=== PATIENT | male | born 1980 | race Two or more races ===

== ENCOUNTER 2025-01-30 17:06 | Emergency (ER) | payer MEDICAID, SELFPAY ==
[2025-01-30] VITALS (8 sets, daily range): BP systolic 119–154; BP diastolic 76–101; PULSE 108–238; RESP 16–18; TEMP 36.8; O2SAT 95–97; BMI 30.3
--- NOTE | 2025-01-30 17:13 | EKG_ITS ---
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
--- NOTE | 2025-01-30 17:13 | EKG_ITS ---
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
[2025-01-30] MEDS: ADENOSINE INJ 3 MG/ML VIAL 6 MG IVP (17:18)
[2025-01-30] MEDS: ADENOSINE INJ 3 MG/ML VIAL 12 MG IVP (17:20)
--- NOTE | 2025-01-30 17:24 | PD.EDARRY ---
ED Arrhythmia Palp. RME/HPI General Chief Complaint: Arrhythmia/Palpitations Stated Complaint: FAST HEART RATE WITH SOB Time Seen by Provider: 01/30/25 17:39 Arrival date/time: 01/30/25 17:06 RME / HPI RME / HPI narrative: DR. HOANG MAIN ED EVALUATION: 44-year-old male with a known history of SVT presents to the Emergency Department after experiencing a sudden onset of palpitations, dizziness, and fatigue approximately 10 minutes prior to arrival. EKG showed revealed SVT with a rate of 236 bpm. He admits to consuming three Monster energy drinks earlier today. He denies chest pain or shortness of breath. The patient has a history of SVT and reports he quit methamphetamine use 19 days ago, although he continues to smoke and drink alcohol. Related Data Home Medications ?Medication ?Instructions ?Recorded ?Confirmed metoprolol tartrate 50 mg tablet 50 mg PO BID 09/02/17 10/23/19 Previous Rx's ?Medication ?Instructions ?Recorded acetaminophen 650 mg 650 mg PO Q8H PRN fever or pain 01/17/22 tablet,extended release #30 tabs ibuprofen 600 mg tablet 600 mg PO Q8H PRN fever or pain 01/17/22 #30 tabs metoprolol tartrate 50 mg tablet 50 mg PO BID #60 tabs 11/13/22 metoprolol tartrate 50 mg tablet 50 mg PO Q12H #28 tabs 05/05/23 Allergies Allergy/AdvReac Type Severity Reaction Status Date / Time No Known Allergies Allergy Verified 01/30/25 17:07 Review of Systems Review of Systems Systems Reviewed: All systems reviewed, normal except as documented Past Medical History Past Medical History CARDIAC: Positive Cardiac Disorders (SVT), Cardiac Arrhythmia and Hypertension Social History SMOKING STATUS: Current every day smoker SUBSTANCE USE: former substance user and methamphetamine ALCOHOL: Current ED Exam Narrative Physical exam: Constitutional: Awake, alert, nontoxic, diaphoretic, looks uncomfortable HEENT: NC, AT, EOMI Neck: Supple CV: tachycardic in SVT Lungs: CTAB, no w/r/r, no respiratory distress. Abd: Soft, NT, NT, no HSM noted to palpation Extremities: No deformities, no edema noted Neuro: AAOx3, CN 2-12 GIBL, no acute neuro deficit noted. Skin: Warm, dry, intact Course Course Course Narrative: 1800h: Patient in SVT with a rate of 240 on arrival. Was given adenosine x 2 as well as IV fluids with improvement of heart rate down to the low 100s. Has a history of this in the past. Did drink several caffeinated beverages prior to this. Improved at present. Awaiting labs. Signed out to Dr. Ceron pending same. Likely able to discharge home after. Quality Measures none Orders Category Date Time Status EKG (ED ONLY) *Do not use* NOW Care 01/30/25 17:13 Completed EKG (ED ONLY) *Do not use* NOW Care 01/30/25 17:13 Completed Insert IV NOW Care 01/30/25 17:13 Active EKG (ED Only) Stat Exams 01/30/25 17:13 Draft EKG (ED Only) Stat Exams 01/30/25 17:13 Draft Adenosine 6mg Inj [Adenocard Inj] Med 01/30/25 17:13 Discontinued 12 mg IVP X1 ONE Adenosine 6mg Inj [Adenocard Inj] Med 01/30/25 17:19 Discontinued 12 mg IVP X1 ONE Adenosine 6mg Inj [Adenocard Inj] Med 01/30/25 17:13 Discontinued 6 mg IVP X1 ONE Ringers Lactated 1000 ml [Lactated Ringers] 1,000 ml Med 01/30/25 17:14 Active IV 999 mls/hr Sodium Chloride 0.9% 1000 ml [Ns] 1,000 ml Med 01/30/25 17:22 Ordered IV 999 mls/hr Vital Signs Vital signs: Vital Signs Pulse Rate 238 H 01/30/25 17:12 Respiratory Rate 18 01/30/25 17:12 Blood Pressure 119/76 01/30/25 17:12 Pulse Oximetry (%) 97 01/30/25 17:12 Oxygen Delivery Method Room Air 01/30/25 17:12 PROCEDURES: Procedure Comment Procedure Note: Cardioversion with Adenosine Indication: Stable supraventricular tachycardia (SVT) with HR 236 bpm. Procedure: Patient was placed on continuous cardiac monitoring. Intravenous (IV) access was established. Adenosine was administered as per ACLS protocol. First dose: Adenosine 6 mg rapid IV push followed by 10 mL saline flush ? no effect. Second dose: Adenosine 12 mg rapid IV push followed by 10 mL saline flush ? delayed response noted, but the patient ultimately converted to normal sinus rhythm. Outcome: Successful chemical cardioversion. Patient tolerated the procedure well without complications. Rhythm returned to sinus following second dose of adenosine. Disposition: Continued cardiac monitoring and further evaluation for underlying triggers. Arrhythmia/Palpitations MDM Narrative MDM Narrative:: I, Milly Ramirez, am scribing for and in the presence of Dr. Hoang. Patient data External records reviewed:: [facility] previous records Clinical information provided by:: patient Social determinants that could affect healthcare access:: substance use Patient has the following chronic illnesses:: The patient has a history of SVT and reports he quit methamphetamine use 19 days ago, although he continues to smoke and drink alcohol. How is presenting disease/condition affected by chronic disease/condition?: exacerbated by Evaluation data The following diagnostics were reviewed and interpreted by me:: lab results, radiology exam(s) and EKG tracing(s) Lab and/or radiology exams considered but not ordered:: none Interpretation Summary: #1 My interpretation: EKG performed at 1712 hours, SVT, rate 236, no STEMI #2 Post adenosine my interpretation: EKG performed at 1717 hours, normal sinus rhythm, rate 98, no STEMI #3 My interpretation: EKG performed at 1719 hours, sinus tachycardia, rate 106, no STEMI Medications / Prescriptions Medications or Prescriptions considered but not ordered:: none Medication administrations:: Medication Administration History Lactated Ringer's (Lactated Ringers) 1,000 mls @ 999 mls/hr IV .Q1H1M ONE Stop: 01/30/25 18:14 Sodium Chloride (Ns) 1,000 mls @ 999 mls/hr IV .Q1H1M ONE Stop: 01/30/25 18:22 Discontinued Medications Adenosine (Adenosine Inj 3 Mg/Ml Vial) 6 mg IVP X1 ONE Stop: 01/30/25 17:14 Last Admin: 01/30/25 17:18 Dose: 6 mg Documented By: DB Adenosine (Adenosine Inj 3 Mg/Ml Vial) 12 mg IVP X1 ONE Stop: 01/30/25 17:14 Last Admin: 01/30/25 17:20 Dose: 12 mg Documented By: DB Adenosine (Adenosine Inj 3 Mg/Ml Vial) 12 mg IVP X1 ONE Stop: 01/30/25 17:20 Consultations Consultation(s) initiated? (list below): No Diagnosis Differential diagnosis arrhythmia/palpitations: palpitations, sinus tachycardia, artial fibrillation, artial flutter, ventricular premature beats, supraventricular tachycardia and other (SVT exacerbated by stimulant intake, atrial flutter, and methamphetamine-related autonomic instability.) Most likely diagnosis given after review of the tests above:: SVT Admission Indicated Admission indicated?: not indicated Admission Request Was there a request for admission?: No Disposition Plan Disposition Plan: other (specify) (Signed out to Dr. Ceron) Discharge Plan Prescriptions/Referrals Prescriptions/Med Rec: No Action metoprolol tartrate 50 mg Tablet 50 mg PO BID acetaminophen 650 mg tablet extended release 650 mg PO Q8H PRN (Reason: fever or pain) Qty: 30 0RF Rx Instructions: swallow whole; do not chew/break/dissolve/open ibuprofen 600 mg tablet 600 mg PO Q8H PRN (Reason: fever or pain) Qty: 30 0RF metoprolol tartrate 50 mg tablet 50 mg PO BID Qty: 60 0RF metoprolol tartrate 50 mg tablet 50 mg PO Q12H Qty: 28 0RF Problem List Clinical Impression: Supraventricular tachycardia Patient/Caregiver Discharge Instructions Print Language: [place]
[2025-01-30] MEDS: SODIUM CHLORIDE 0.9% 1000 ML 1,000 ML 999 ML IV (17:28)
--- NOTE | 2025-01-30 17:40 | XR_ITS ---
Examination: AP chest single view Technique one AP portable upright chest single view Date and time: January 30, 2025 1745 hours Comparison March 04, 2021 INDICATION: Chest pain beginning 2 days ago. FINDINGS: Normal heart size. Lungs are clear. Osseous structures are intact. IMPRESSION: No active disease.
[2025-01-30 18:11] LABS: Basophils # (Auto) 0.1 Thou/mm3 (0.0-0.2); Basophils % (Auto) 1 % (0-2.5); Eosinophils # (Auto) 0.3 Thou/mm3 (0.0-0.5); Eosinophils % (Auto) 2 % (0-10); Hematocrit 45.9 % (41.0-53.0); Hemoglobin 15.7 g/dL (13.5-16.0); Immature Granulocytes Auto 0.03 Thou/mm3 (0.00-0.00); Lymphocytes # (Auto) 5.7 Thou/mm3 (1.0-4.8); Lymphocytes % (Auto) 52 % (10-50); Mean Corpuscular HGB Conc 34.2 g/dl (31.0-37.0); Mean Corpuscular Hemoglobin 31.1 pg (25.0-35.0); Mean Corpuscular Volume 91 fL (80-100); Monocytes # (Auto) 0.6 Thou/mm3 (0.0-0.8); Monocytes % (Auto) 6 % (0-12); Neutrophils # (Auto) 4.4 Thou/mm3 (1.8-7.7); Neutrophils % (Auto) 39 % (37-80); Nucleated Red Blood Cell # 0.00 Thou/mm3 (0.00-0.00); Nucleated Red Blood Cell % 0 /100 WBC (0); Platelet Count 305 Thou/mm3 (140-440); RDW Standard Deviation 44.2 fL (35.1-43.9); Red Blood Count 5.05 Miln/mm3 (4.50-5.90); White Blood Count 11.1 Thou/mm3 (3.8-10.6)
[2025-01-30 18:37] LABS: Alanine Aminotransferase 32 U/L (10-49); Albumin, Serum 4.9 gm/dL (3.5-5.0); Albumin/Globulin Ratio 1.8 (1.2-2.2); Alkaline Phosphatase 102 U/L (46-116); Anion Gap 9 (7-16); Aspartate Amino Transferase 47 U/L (0-34); BUN/Creatinine Ratio 10 Ratio (12-20); Bilirubin,Total 0.5 mg/dL (0.3-1.2); Blood Urea Nitrogen 15 mg/dL (9-23); Calcium 10.1 mg/dL (8.3-10.6); Calcium (Corrected) 10.1 mg/dL (8.5-10.1); Carbon Dioxide 27.2 mMol/L (20.0-31.0); Chloride 102 mMol/L (98-107); Creatinine (Component) 1.5 mg/dL (0.6-1.3); Estimated Creatinine Clearance 80.5 mL/min (>60); Globulin 2.8 gm/dL (2.3-3.5); Glucose 193 mg/dL (74-106); Magnesium 2.2 mg/dL (1.6-2.6); Osmolality,Calculated 281 (275-295); Potassium 3.7 mMol/L (3.4-5.1); Sodium 138 mMol/L (136-145); Total Protein 7.7 gm/dL (5.7-8.2); Troponin I < 0.020 ng/mL (0.0-0.045); eGFR 59 See Note
[2025-01-30 18:57] LABS: B-Type Natriuretic Peptide < 20 pg/mL (0-100)
--- NOTE | 2025-01-30 19:04 | PD.EDADDENDU ---
Emergency Room Addendum Addendum Narrative: Case was signed out to me. Patient was status post supraventricular tachycardia. Labs are unremarkable. Patient is supposed to be on metoprolol but has not been taking it. Patient will be discharged in stable condition to take metoprolol as prescribed. Follow-up with his doctor. Return to ER as needed or if condition worsens.
[2025-01-30 19:20] LABS: Path Review Blood Smear Sent to Pathologist
== END 2025-01-30 19:17 | disposition home or self-care (01) ==
LOC: SERX 19:23
PROVIDERS: Emergency Provider Family Medicine
DX: I47.10 Supraventricular tachycardia, unspecified (principal); F17.210 Nicotine dependence, cigarettes, uncomplicated
CPT/HCPCS: 36415; 71045; 80053; 80307; 83735; 83880; 84484; 85025; 93005; 96360; 96374; 96376; 99283; J0153; J7030